=== PATIENT | female | born 1960 | race Caucasian/White ===

== ENCOUNTER → 2017-07-25 | Day surgery (SDC) | payer OTHER ==
[~2017-07-25] MED LIST: ACETAMINOPHEN/HYDROcodone 325 MG/5 MG TAB ONE; ALPR0.25 PO; KETOROLAC TROMETHAMINE 30 MG/ML (IVP) VIAL IV PUSH ONE; MIDAZOLAM HCL 2 MG/2 ML VIAL ONE; ONDANSETRON HCL 4 MG/2 ML VIAL IV PUSH ONE; PROPOFOL 200 MG/20 ML AMP IV ONE; SODIUM CHLOR 0.9% 250 ML BAG IV ONE; SODIUM CHLORIDE 0.9% 100 ML BAG IV ONE; ULTR50TA PO; ceFAZolin INJ 1,000 MG VIAL ONE
--- NOTE | 2017-07-27 08:18 | MP ---
cc: VAN SQUIRES M.D. DATE OF SURGERY 07/25/2017 PREOPERATIVE DIAGNOSIS Right knee medial meniscus tear, chondromalacia patellae, chondromalacia medial femoral condyle. POSTOPERATIVE DIAGNOSES 1. 80% radial/root tear posterior horn medial meniscus. 2. 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 PROCEDURE Right knee arthroscopic partial medial meniscectomy including arthroscopic chondroplasty medial femoral condyle and patella. ANESTHETIC General. SURGEON Van Squires MD ESTIMATED BLOOD LOSS Minimal. DRAINS None. SPECIMEN None. COMPLICATIONS None known. INDICATION Yvonne Collins is a 57-year-old female with persistent pain and swelling and abnormal findings on MRI scan. She now presents for arthroscopic surgery. The risks and benefits were thoroughly discussed in detail. Informed consent was obtained. PROCEDURE The patient was brought to the operating room. She was placed under general anesthetic. The right lower extremities was prepped and draped in the usual sterile fashion. IV antibiotics were given. Time-out was completed. Marcaine with epinephrine was injected about the inferior medial portal. A blunt trocar was used to introduce the cannula, the knee insufflated with saline. Mild chondromalacia in the region of 1 x 1 cm noted on the undersurface of the patella. The notch showed a normal-appearing ACL. The lateral compartment showed some minimal inner edge fraying of the meniscus, otherwise normal lateral compartment. The medial compartment showed diffuse chondromalacia in the weightbearing portion of the medial femoral condyle. As well there was grade 3 and small grade 4 area of exposed bone on the tibial plateau. In the posterior horn of the medial meniscus we found a tear involving the meniscus root that ultimately involved 80% the depth of the meniscus. We made our medial-based portal and proceeded with arthroscopic partial medial meniscectomy using a combination of basket forceps and arthroscopic shaver and we tapered the meniscus to complete the partial meniscectomy. We performed gentle chondroplasty on unstable fibers of chondromalacia on the medial femoral condyle and medial tibial plateau and ultimately the undersurface of the patella. We switched over a switching stick to smooth and fine-tune the meniscus and the chondroplasty. Follow-up photographs showed the final result. The arthroscopic equipment was removed. Marcaine had been injected by the portals, Steri-Strips applied, sterile dressing applied. The patient was awoken and returned to the recovery room in stable condition. MD MARIA LUISA Drew/JAX /9:42 AM 8:02 AM
== END | disposition home or self-care (01) ==
LOC: ESDC 07:34
PROVIDERS: ATTEND Orthopaedic Surgery Sports Medicine
DX: S83.241A Other tear of medial meniscus, current injury, right knee, initial encounter (principal); M22.41 Chondromalacia patellae, right knee
CPT/HCPCS: 01400; 29881; J0690; J1885; J2250; J2405; J3010; J7050